=== PATIENT | female | born 1995 | race Hispanic/Latino ===

== ENCOUNTER 2017-01-12 12:46 | Emergency (ER) | payer OTHER ==
--- NOTE | 2017-01-12 13:47 | Emergency Department Report ---
Chief Complaint: Dizziness Stated Complaint: LIGHT HEADED/DIZZINESS/BLURRED VISION Time Seen by Provider: 01/12/17 13:44 - HPI History of Present Illness: PT c/o feeling lightheaded/ dehydrated since noon. PT states she tried to eat but could not due to nausea. - ROS Review of Systems: pt denies vomiting lmp - currently - PT states she has been bleeding intermittently x 2 months since change of control - Exam Vital Signs: Vital Signs 01/12/17 13:01 Temperature 97.8 F Pulse Rate 101 H Respiratory 18 Rate Blood Pressure 136/98 O2 Sat by Pulse 100 Oximetry Physical Exam: PT looks well, non toxic. gcs 15 MSE screening note: Focused history and physical exam performed. Due to findings the following was ordered: labs, ekg ED Disposition for MSE Condition: Stable
[2017-01-12 14:29] LABS: Basophils % (Auto) 0.6 % (0.0-1.8); Eosinophils % (Auto) 0.4 % (0.0-4.3); Hematocrit 38.1 % (30.3-42.9); Hemoglobin 12.7 gm/dl (10.1-14.3); Mean Corpuscular HGB Conc 33 % (30-34); Mean Corpuscular Volume 77 fl (79-97); Platelet Count 184 K/mm3 (140-440); Red Blood Count 4.97 M/mm3 (3.65-5.03); White Blood Count 5.8 K/mm3 (4.5-11.0)
[2017-01-12 14:34] LABS: Alanine Aminotransferase 11 units/L (7-56); Albumin 4.6 g/dL (3.9-5); Albumin/Globulin Ratio 1.6 %; Alkaline Phosphatase 111 units/L (35-129); Anion Gap 18 mmol/L; BUN/Creatinine Ratio 12.85; Blood Urea Nitrogen 9 mg/dL (7-17); Calcium 9.5 mg/dL (8.4-10.2); Carbon Dioxide 24 mmol/L (22-30); Chloride 100.6 mmol/L (98-107); Glucose 96 mg/dL (65-100); Potassium 4.4 mmol/L (3.6-5.0); Sodium 138 mmol/L (137-145); Total Protein 7.5 g/dL (6.3-8.2)
[2017-01-12 14:44] LABS: Mean Corpuscular Hemoglobin 26 pg (28-32)
[2017-01-12] MEDS ORDERED: NACL 0.9% 1000 ML 2,000 ML IV ONE (14:45)
--- NOTE | 2017-01-12 15:23 | Emergency Department Report ---
ED General Adult HPI - General Chief complaint: Dizziness Stated complaint: LIGHT HEADED/DIZZINESS/BLURRED VISION Time Seen by Provider: 01/12/17 13:44 Source: patient, RN notes reviewed, old records reviewed Mode of arrival: Ambulatory Limitations: No Limitations - History of Present Illness Initial comments: This is a 21-year-old female. She is previously known to me. She does not have a primary care doctor. She denies chronic medical conditions. The patient has a chronic indwelling left upper extremity control device. The patient presents to the ER with dizziness, lightheadedness, near-syncope and blurred vision. She presented late last year with similar symptoms, and was presumptively diagnosed with orthostasis. The patient reports that she was sitting down at work, began to feel lightheaded , had nonspecific blurry vision. This was not preceded by headache, neck pain, chest pain, abdominal pain or shortness of breath. She denies weakness, numbness, chest pain, shortness of breath. She reports she is eating and drinking as much as she typically eats and drinks. There is no leg pain. There is no leg swelling. No recent trips greater than 4 hours. No recent hospital admissions. No irritative or obstructive urinary symptoms. No hematemesis. No bright red blood per rectum. -: Sudden Consistency: now resolved Improves with: none Worsens with: none Associated Symptoms: syncope, weakness - Related Data Previous Rx's Medication Instructions Recorded Last Taken Type Ondansetron [Zofran TAB] 4 mg PO Q8HR PRN #14 tablet 06/10/16 Unknown Rx Allergies Allergy/AdvReac Type Severity Reaction Status Date / Time No Known Allergies Allergy Unverified 06/10/16 16:10 ED Review of Systems ROS: Stated complaint: LIGHT HEADED/DIZZINESS/BLURRED VISION Other details as noted in HPI Constitutional: malaise. denies: fever Eyes: denies: eye discharge ENT: denies: ear pain Respiratory: denies: cough Cardiovascular: syncope. denies: chest pain Gastrointestinal: denies: vomiting Genitourinary: as per HPI Musculoskeletal: denies: back pain Skin: denies: lesions Neurological: vertigo Psychiatric: anxiety ED Past Medical Hx - Past Medical History Previous Medical History?: No - Surgical History Past Surgical History?: No - Social History Smoking Status: Never Smoker Substance Use Type: None - Medications Home Medications: Home Medications Medication Instructions Recorded Confirmed Last Taken Type Ondansetron [Zofran TAB] 4 mg PO Q8HR PRN #14 tablet 06/10/16 Unknown Rx ED Physical Exam - General Limitations: No Limitations General appearance: alert, in no apparent distress - Head Head exam: Present: atraumatic, normocephalic - Eye Eye exam: Present: normal appearance, PERRL, EOMI, other (visual acuity intact to finger counting, color perception, reading at a close distance). Absent: nystagmus - ENT ENT exam: Present: normal exam, normal orophraynx, mucous membranes moist, normal external ear exam - Neck Neck exam: Present: normal inspection, full ROM. Absent: tenderness, meningismus - Respiratory Respiratory exam: Present: normal lung sounds bilaterally. Absent: respiratory distress, wheezes, rales, rhonchi, stridor, chest wall tenderness, accessory muscle use, decreased breath sounds, prolonged expiratory - Cardiovascular Cardiovascular Exam: Present: regular rate, normal rhythm, normal heart sounds. Absent: bradycardia, tachycardia, irregular rhythm, systolic murmur, diastolic murmur, rubs, gallop - GI/Abdominal GI/Abdominal exam: Present: soft, normal bowel sounds. Absent: distended, tenderness, guarding, rebound, rigid, pulsatile mass - Extremities Exam Extremities exam: Present: normal inspection, full ROM, normal capillary refill. Absent: tenderness, pedal edema, joint swelling, calf tenderness - Back Exam Back exam: Present: normal inspection, full ROM. Absent: tenderness, CVA tenderness (R), CVA tenderness (L), muscle spasm, paraspinal tenderness, vertebral tenderness - Neurological Exam Neurological exam: Present: alert, oriented X3, normal gait (normal gait, normal tandem gait, normal afve-ga-jolk, negative Romberg, negative pronator drift, no past pointing), other (Extraocular movements intact. Tongue midline. No facial droop. Facial sensation intact to light touch in the V1, V2, V3 distribution bilaterally. 5 and 5 strength in 4 extremities.. Sensation is intact to light touch in 4 extremities.). Absent: motor sensory deficit - Psychiatric Psychiatric exam: Present: normal affect, normal mood - Skin Skin exam: Present: warm, dry, intact, normal color. Absent: rash ED Course Vital Signs 01/12/17 01/12/17 01/12/17 13:01 14:15 16:35 Temperature 97.8 F 98.7 F 97.8 F Pulse Rate 101 H 104 H 99 H Respiratory 18 16 16 Rate Blood Pressure 136/98 Blood Pressure 114/78 126/75 [Right] O2 Sat by Pulse 100 100 100 Oximetry - Reevaluation(s) Reevaluation #1: 01/12/17 15:22 Differential diagnosis: Orthostasis, near vagal event, dehydration, pulmonary embolus assessment and plan: 21-year-old female with probable dehydration and orthostasis. She has positive orthostatic vital signs. She has an NIH score of 0, visual acuity is intact to finger counting, color perception, reading at a close systems, there are no visual field cuts on direct confrontation. She is low risk by well's criteria, but given her indwelling left upper extremity control device, she does have a pulmonary embolus/DVT risk factor. A d- dimer is ordered to risk stratify the patient for pulmonary embolus. In the meantime, she is not having any pain, and she will be treated with 2 L of normal saline. Her EKG is unremarkable, and appears to be unchanged when compared to prior EKG. Reevaluation #2: 01/12/17 16:07 d-dimer is negative. Tachycardia resolved. Visual acuity appropriate and within normal limits. The patient feels improved. The patient will be discharged at this time. Return precautions are reviewed. She is suitable to follow up with outpatient cardiology. Most likely diagnosis orthostasis/dehydration. ED Medical Decision Making - Lab Data Result diagrams: 01/12/17 14:02 01/12/17 14:02 Vital Signs 01/12/17 01/12/17 13:01 14:15 Temperature 97.8 F 98.7 F Pulse Rate 101 H 104 H Respiratory 18 16 Rate Blood Pressure 136/98 Blood Pressure 114/78 [Right] O2 Sat by Pulse 100 100 Oximetry Lab Results 01/12/17 01/12/17 01/12/17 Range/Units 14:02 14:02 14:02 WBC 5.8 (4.5-11.0) K/mm3 RBC 4.97 (3.65-5.03) M/mm3 Hgb 12.7 (10.1-14.3) gm/dl Hct 38.1 (30.3-42.9) % MCV 77 L (79-97) fl MCH 26 L (28-32) pg MCHC 33 (30-34) % RDW 16.0 H (13.2-15.2) % Plt Count 184 (140-440) K/mm3 Lymph % (Auto) 18.6 (13.4-35.0) % Beckham % (Auto) 9.8 H (0.0-7.3) % Eos % (Auto) 0.4 (0.0-4.3) % Baso % (Auto) 0.6 (0.0-1.8) % Lymph # 1.1 L (1.2-5.4) K/mm3 Beckham # 0.6 (0.0-0.8) K/mm3 Eos # 0.0 (0.0-0.4) K/mm3 Baso # 0.0 (0.0-0.1) K/mm3 Seg Neutrophils % 70.6 H (40.0-70.0) % Seg Neutrophils # 4.1 (1.8-7.7) K/mm3 Sodium 138 (137-145) mmol/L Potassium 4.4 (3.6-5.0) mmol/L Chloride 100.6 (98-107) mmol/L Carbon Dioxide 24 (22-30) mmol/L Anion Gap 18 mmol/L BUN 9 (7-17) mg/dL Creatinine 0.7 (0.7-1.2) mg/dL Estimated GFR > 60 ml/min BUN/Creatinine Ratio 12.85 % Glucose 96 (65-100) mg/dL Calcium 9.5 (8.4-10.2) mg/dL Total Bilirubin 0.40 (0.1-1.2) mg/dL AST 12 (5-40) units/L ALT 11 (7-56) units/L Alkaline Phosphatase 111 (35-129) units/L Total Protein 7.5 (6.3-8.2) g/dL Albumin 4.6 (3.9-5) g/dL Albumin/Globulin Ratio 1.6 % HCG, Qual Negative (Negative) - EKG Data -: EKG Interpreted by Mo EKG shows normal: sinus rhythm - EKG Data 01/12/17 15:23 normal sinus, 94 bpm, normal axis, QTC 452 ms, morphologically consistent with STEMI, when compared to prior EKG from 06/10/2016, appears unchanged from prior. Critical care attestation.: If time is entered above; I have spent that time in minutes in the direct care of this critically ill patient, excluding procedure time. ED Disposition Clinical Impression: Near syncope Disposition: DC-01 TO HOME OR SELFCARE Is pt being admited?: No Does the pt Need Aspirin: No Condition: Stable Instructions: Syncope (ED) Additional Instructions: Follow-up with an outpatient planning division superintendent within the next 7-10 days. Drink plenty of fluids. Return to the ER right away with fevers, chills, chest pain, shortness of breath, dizziness, lightheadedness, intractable nausea or vomiting , inability to tolerate liquid feeds. Referrals: PRIMARY CARE, [Primary Care Provider] - 3-5 Days MARTIN AYALA MD [Staff Physician] - 3-5 Days ABIGAIL ZAYAS MD [Staff Physician] - 3-5 Days
[2017-01-12 16:36] VITALS: BP 126/75
== END 2017-01-12 16:36 | disposition home or self-care (01) ==
LOC: ED 12:46
DX: R55 Syncope and collapse (principal)
CPT/HCPCS: 36415; 80053; 83735; 84443; 84703; 85025; 85379; 93005; 93010; 96360; 99284; J7030